=== PATIENT | male | born 1970 | race African-American/Black ===

== ENCOUNTER 2019-10-25 22:59 | Emergency (ER) | payer SELFPAY ==
[~2019-10-25] VITALS: Ht 182.9 cm; Wt 100.0 kg
[2019-10-25 23:43] LABS: HEMATOCRIT. 40.3 % (42.0-52.0); HEMOGLOBIN. 13.9 g/dL (14.0-18.0); MEAN CORPUSCULAR HEMOGLOBIN 31.6 pg (28.0-32.0); MEAN CORPUSCULAR VOLUME 91.7 fL (80.0-94.0); MEAN PLATELET VOLUME 7.8 fl (7.4-10.4); PLATELET 309 x1000/uL (130-400); RED CELL DISTRIBUTION WIDTH 14.3 % (11.6-14.6)
[2019-10-25] MEDS ORDERED: SODIUM CHLORIDE 0.9% 1,000 ML IV ONE (23:45)
[2019-10-25 23:48] LABS: CHLORIDE 112 mEq/L (98-107)
[2019-10-25 23:50] LABS: INR 1.1; PROTHROMBIN TIME 11.5 sec (9.6-11.0)
[2019-10-26 00:11] LABS: ETHANOL BLOOD 358 mg/dL
[2019-10-26] MEDS ORDERED: ONDANSETRON HCL 4MG/2ML INJ IV ONE (00:15)
[2019-10-26 00:47] LABS: PLATELET ESTIMATE NORMAL
[2019-10-26] MEDS ORDERED: ONDANSETRON 4MG ODT PO ONE (03:45)
[2019-10-26 06:30] VITALS: BP 120/74
== END 2019-10-26 06:32 | disposition home or self-care (01) ==
LOC: ER 22:59
DX: F10.229 Alcohol dependence with intoxication, unspecified (principal); Y90.8 Blood alcohol level of 240 mg/100 ml or more; R11.2 Nausea with vomiting, unspecified
CPT/HCPCS: 36415; 80053; 80320; 82962; 83690; 84484; 85025; 85610; 93005; 99285; J2405; J7030; Q0162; G0480